=== PATIENT | female | born 1980 | race Caucasian/White ===

== ENCOUNTER → 2021-11-24 | Outpatient (POV) | payer OTHER ==
[~2021-11-24] VITALS: Ht 157.5 cm; Wt 54.5 kg
[2021-11-24 13:40] VITALS: BP 143/73
== END ==
LOC: M IRPOV 13:31
PROVIDERS: ATTEND Radiology Diagnostic Radiology
DX: I83.93 Asymptomatic varicose veins of bilateral lower extremities (principal); M62.81 Muscle weakness (generalized); R93.5 Abnormal findings on diagnostic imaging of other abdominal regions, including retroperitoneum; Z86.711 Personal history of pulmonary embolism

== ENCOUNTER → 2021-12-07 | Outpatient (CLI) | payer OTHER ==
[~2021-12-07] MED LIST: FERR32TA PO; ISOVUE-300 61% 50ML VIAL As Ordered ONE; LIDOCAINE 1% MDV 20ML VIAL As Ordered ONE; MIDAZOLAM INJ 2MG/2ML VIAL (J2250 PER 1MG) As Ordered ONE; NS 1,000 ML IV SCH; diphenhydrAMINE 50MG/ML VIAL (J1200) As Ordered ONE; fentaNYL 100 MCG/2 ML INJECTION As Ordered ONE
[2021-12-07 16:54] VITALS: BP 105/70
== END ==
LOC: M IRPRO 11:50
PROVIDERS: ATTEND Radiology Diagnostic Radiology
DX: I78.1 Nevus, non-neoplastic (principal); Z86.711 Personal history of pulmonary embolism
CPT/HCPCS: 36000; 75820; 99152; 99153; C1894; J1200; J1644; J2250; J3010; Q9967